=== PATIENT | male | born 1945 | race Caucasian/White ===

== ENCOUNTER 2020-07-27 19:50 | Emergency (ER) | payer MEDICARE, OTHER ==
[~2020-07-27 19:50] MED LIST: Amiodarone 150 MG/3 ML VIAL ONE; Calcium Chloride 1 GM/10 ML Abboject SYRINGE ONE; EPINEPHrine 1 MG/10 ML Abboject SYRINGE ONE
== END 2020-07-27 20:04 | disposition expired ==
LOC: ERS 19:50
DX: I46.9 Cardiac arrest, cause unspecified (principal); J44.9 Chronic obstructive pulmonary disease, unspecified; F17.210 Nicotine dependence, cigarettes, uncomplicated
CPT/HCPCS: 92950; 94760; 96374; 96375; J0171; J0282